=== PATIENT | female | born 1970 | race Caucasian/White ===

== ENCOUNTER 2025-04-30 12:01 | Emergency (ER) | payer BC, SELFPAY ==
[2025-04-30 12:03] VITALS: BP 103/76
[2025-04-30] MEDS: LIORESAL 10 MG PO (13:38)
--- NOTE | 2025-04-30 14:32 | ED.GENMED ---
History of Present Illness
General
Chief Complaint: Fall
Source: patient and records
Time Seen by Provider: 04/30/25 13:00
History of Present Illness
History of Present Illness:
Note:
CHIEF COMPLAINT(S)
The patient reports pain in the right arm and hip following a fall.
HISTORY OF PRESENT ILLNESS
The patient is a 54-year-old female who presented to the emergency department after falling from a height of approximately four to six feet from a ladder onto her right side. Currently, she experiences shooting pain down her right arm and hip. No
loss of consciousness, severe headache, or vomiting was noted following the fall. The patient denies taking any blood-thinning medications and reports no significant neck pain, stiffness, numbness, tingling, or weakness. Patient took 800 mg of
Advil prior to arrival but reports minimal relief with this. No other extremity related pain or injury.
Past History
Past History
ED Past Medical History: None
ED Past Surgical History: Bowel resection
Social History
Tobacco: Non-smoker
Alcohol: Occasional
Drug: None
Personal:
Living: with family
Review of Systems
Review of Systems
All Other Systems: ROS reviewed and negative except as documented in HPI and ROS
Phy Exam
Physical Exam
Physical Exam:
GENERAL: Alert , in no apparent distress but does appear uncomfortable
HEAD: Calvarium intact. There is small bruising noted to the right maxilla and chin
EYE: pupils equal and reactive, 3 mm bilateral
NECK: Supple, no midline tenderness
ENT: o/p clr, mmm.
CARDIAC: Regular rate and rhythm .
LUNGS: Clear breath sounds bilaterally, no acute respiratory distress, no wheezes/rales/rhonchi
ABDOMEN: Soft, without focal tenderness, no r/g, no cvat
BACK: There is generalized midline tenderness around the sacrum and lumbar region but no breaks in the skin or ecchymosis
NEUROLOGICAL: Alert and oriented
SKIN: Warm and dry, skin intact.
MUSCULOSKELETAL: Right upper extremity: Held abducted against the body and flexed at 90 degrees at the elbow. Patient unable to range of motion her right shoulder secondary to pain. Easily palpable radial pulse. Sensation grossly intact to light
touch throughout the entirety of the right upper extremity. Right lower extremity: No focal areas of tenderness. Patient does allow for range of motion at the right hip, knee and ankle with minimal pain noting that she really only had pain when
she went to go ambulate and the pain would be felt more in her lower back
PSYCH: Normal and appropriate interaction.
Scores
Heart Failure Risk
Heart Failure Risk Score: Not Applicable
Heart Score for Chest Pain Patients
STEMI patient?: Not applicable
Withdrawal Assessment of Alcohol
Withdrawal Assessment Completed?: Not applicable
Course
Orders/Labs/Results
Orders:
Orders
04/30/25 12:41
CR Shoulder, Trauma - Right Urgent
Comment:
Reason For Exam: injury from fall
Hip, Right 2-3 Views [CR Hip - RT w/wo Pel 2-3 Vw*] Urgent
Comment:
Reason For Exam: injury from fall
Include a pelvis x-ray?: No
04/30/25 13:[address] Cervical Spine W/o Iv Contr Urgent
Comment:
Reason For Exam: fall 5-6 feet from ladder, head injury
CT Head W/o Iv Contrast Urgent
Comment:
Reason For Exam: fall 5-6 feet from ladder, head injury
CT Lumbar Spine W/o Iv Contras Urgent
Comment:
Reason For Exam: fall 5-6 feet from ladder, midline lumbar/sacral
04/30/25 13:21
Baclofen [Lioresal] 10 mg PO NOW STA
04/30/25 14:39
Sling Right-Treatment ONCE
Vital Signs
Initial and Last Documented VS:
Initial Vital Signs
Temp Pulse Resp BP Pulse Ox
98.2 F 71 20 103/76 97
04/30/25 12:03 04/30/25 12:03 04/30/25 12:03 04/30/25 12:03 04/30/25 12:03
Last Documented Vital Signs
Temp Pulse Resp BP Pulse Ox
98.2 F 71 20 103/76 97
04/30/25 12:03 04/30/25 12:03 04/30/25 12:03 04/30/25 12:03 04/30/25 12:03
MDM/Problems Addressed
Differential Diagnosis Includes:
The Differential Diagnosis includes, in no particular order, and is not limited to:
1. Acromioclavicular joint sprain
2. Lower back contusion
3. Vertebral compression fracture
4. Cervical spine injury
5. Radiculopathy
6. Soft tissue contusion
7. Traumatic myositis
8. Brachial plexus injury
9. Disc herniation
10. Subdural hematoma
MDM/Problems Addressed:
X-rays ordered to evaluate for shoulder and hip pathologies. X-ray of the right shoulder does appear to be a small AC joint separation but no fracture of the shoulder. X-ray of the right hip/pelvis does not reveal any acute pathologies. Given the
nature of the injury I ordered CT scans of the head, cervical spine and lumbar spine. Patient does not wish to have any further opiate-based pain medication, is amenable to muscle relaxant. Disposition pending.
*Radiology
Radiology exam reviewed: preliminary read by ED provider and radiology read reviewed
*Pulse Oximetry
Patient hypoxic: no
Comment: 97
*Critical Care Note
Total Time (30-74mins, 75-104mins- exclusive of procedures): Not Applicable
Patient Management
Escalation/DeEscalation of care consider admission/obs:
CT findings without any acute pathology. At this time patient stable for discharge home, continued pain management at home. Aware of return precautions.
ED Attending Note
-
Portions of this chart may have been created with voice recognition software.� Occasional wrong word or��sound alike� substitutions may have occurred due to the inherent limitations of voice recognition software.
Discharge Plan
Departure
Patient Disposition: Home (Routine Discharge)
Date of Disposition: 04/30/25
Time of Disposition: 14:39
Patient with high blood pressure during this ER visit?: No
Discharge Problem:
Fall from ladder, Separation of right acromioclavicular joint, Low back pain
Instructions: shoulder
Prescriptions:
New
baclofen 10 mg tablet
10 mg PO BID PRN (Reason: muscle spasm) Qty: 8 0RF
No Action
metoclopramide HCl 10 MG tablet
10 mg PO TID PRN (Reason: nausea) Qty: 12 0RF
Referrals:
Beena Hayward MD [Family Provider, Internal Medicine]
Andrey Samaniego MD [Active, Orthopedics]
Interventions
Interventions:
*Risk Screen - Suicide Last Done: 04/30/25 12:03
*General Assessment Last Done: 04/30/25 12:03
*Neglect/Abuse Screening Last Done: 04/30/25 12:39
*ED- Fall Risk Assessment Last Done: 04/30/25 12:39
*ED COVID-19 Vaccine History Last Done: 04/30/25 12:39
ED-Musculoskeletal Assessment Last Done: 04/30/25 12:39
ED- Neurological Assessment Last Done: 04/30/25 12:39
ED-Skin Assessment Last Done: 04/30/25 12:39
Discharge Date and Time
Print Language: AFGHAN
== END 2025-04-30 15:00 | disposition home or self-care (01) ==
LOC: EMR 12:01
PROVIDERS: EMERGENCY PHYSICIAN Emergency Medicine; FAMILY PHYSICIAN Hospitalist
DX: S43.101A Unspecified dislocation of right acromioclavicular joint, initial encounter (principal); M54.50 Low back pain, unspecified; M25.551 Pain in right hip; W11.XXXA Fall on and from ladder, initial encounter; Z98.0 Intestinal bypass and anastomosis status
CPT/HCPCS: 99284; 70450; 72125; 72131; 73030; 73502